=== PATIENT | female | born 1990 | race Caucasian/White ===

== ENCOUNTER 2018-07-23 00:31 | Emergency (ER) | payer OTHER ==
[2018-07-23 01:02] LABS: Bilirubin Negative (Negative); Blood, Urine Large (Negative); Glucose, Urine (Dipstick) Negative (Negative); Leukocyte Negative (Negative); Nitrite Negative (Negative); Protein, Urine (Dipstick) Trace mg/dL (Neg-Trace); Urobilinogen 0.2 mg/dL (0.2-1.0)
[2018-07-23 01:03] LABS: #Basophils 0.1 thou/uL (0.0-0.2); #Eosinphils 0.1 thou/uL (0.0-0.7); #Lymphocytes 2.8 thou/uL (1.20-3.40); #Monocytes 0.6 thou/uL (0.11-0.59); #Neutrophils 6.6 thou/uL (1.40-6.50); %Basophils 0.7 % (0.0-1.0); %Eosinophils 1.3 % (0.0-10.0); %Lymphocytes 27.8 % (21.0-51.0); %Monocytes 5.8 % (0.0-10.0); %Neutrophils 64.4 % (42.0-75.0); Hemoglobin 13.4 g/dL (12.0-16.0); Mean Corpuscular Hemoglobin 30.4 pg (27.0-31.0); Mean Corpuscular Volume 92.1 fL (78.0-98.0); Mean Platelet Volume 7.2 fL (7.4-10.4); Platelet Count 322 thou/uL (130-400); RBC Distribution Width 10.7 % (11.5-14.5); Red Blood Cell (RBC) Count 4.41 mill/uL (4.20-5.40); White Blood Cell (WBC) Count 10.2 thou/uL (4.8-10.8)
[2018-07-23 01:06] LABS: Clarity Clear (Clear); Specific Gravity, Urine 1.005 (1.005-1.030)
[2018-07-23 01:10] LABS: Bacteria/HPF None Seen HPF (None Seen); Hyaline Casts/LPF NONE SEEN LPF (0-3 Hyaline); Squamous Epithelial None Seen HPF (0-3); WBC/HPF 0-3 HPF (0-3)
[2018-07-23 01:41] LABS: ALT (SGPT) 16 U/L (8-55); AST (SGOT) 18 U/L (5-34); Albumin 4.2 g/dL (3.5-5.0); Alkaline Phosphatase 76 U/L (40-150); Anion Gap 12 mmol/L (10-20); BUN (Urea Nitrogen) 17 mg/dL (7.0-18.7); Bilirubin, Total 0.6 mg/dL (0.2-1.2); Calc. Creatinine Clearance 0 mL/min (70-130); Calcium 9.3 mg/dL (7.8-10.44); Carbon Dioxide 29 mmol/L (22-29); Chloride 103 mmol/L (98-107); Estimated GFR-MDRD 63; Globulin 3.5 g/dL (2.4-3.5); Glucose 96 mg/dL (70-105); Potassium 3.5 mmol/L (3.5-5.1); Protein, Total 7.7 g/dL (6.0-8.3); Sodium 140 mmol/L (136-145)
--- NOTE | 2018-07-23 08:15 | ULT ---
PRELIMINARY REPORT/[facility]/EMERGENTY AFTER-HOURS PROCEDURE US , Limited and US , Transvaginal EXAM DATE/TIME: 07/23/2018 2:38 AM CLINICAL HISTORY: 27 years old, female; Pain and signs and symptoms; Lmp or gestational age (in weeks): 05/09/18; Antepar saray complications; Hemorrhage; complicated by abdominal or pelvic pain; Other: Pelvic cramp ing pain; ; Patient HX: Hcg 15909. Spotting x 5 days, bleeding with clots tonight with pelvic cramping pain TECHNIQUE: Real-time ultrasound of the maternal uterus with image documentation. Transvaginal imaging w as used for better evaluation of the fetus and adnexa. Exam focused on the clinical indication. COMPARISON: No relevant prior studies available. FINDINGS: GESTATION: Gestation: No visible intrauterine gestation. MATERNAL: Uterus: Endometrial stripe is normal in thickness at 1.2 cm but is heterogeneous with mild internal D oppler signal. Cervix: The cervical canal is distended to 1.7 cm in AP dimension with heterogeneous material includi ng a 7 mm oval hypoechoic area. No associated internal Doppler signal. Right adnexa: Right ovary is normal normal Doppler signal. Left adnexa: Left ovary is normal with normal Doppler signal. IMPRESSION: 1. No visible intrauterine gestation. Heterogeneous normal thickness endometrial stripe with internal Doppler signal is suspicious for retained products of conception. Submucosal fibroid or endometrial polyp not excluded. 2. Cervical canal distended to 1.7 cm with a vascular heterogeneous material, likely represents blood products. Thank you for allowing us to participate in the care of your patient. Dictated and Authenticated by: Shamir Hutson MD 07/23/2018 3:39 AM Central Time ([place] & [place]) FINAL REPORT TRANSABDOMINAL AND TRANSVAGINAL PELVIC ULTRASOUND WITH ALEJANDRE SCALE AND COLOR FLOW AND SPECTRAL DOPPLER IMAGING: I agree with the preliminary report given by Dr. Shamir Hutson of [place]. POS: [facility]
== END 2018-07-23 04:17 | disposition home or self-care (01) ==
LOC: ERS 00:31
DX: O03.4 Incomplete spontaneous abortion without complication (principal)
CPT/HCPCS: 36415; 76856; 80053; 81003; 81015; 84702; 85025; 86900; 86901

== ENCOUNTER 2020-05-04 04:53 | Inpatient (IN) | payer OTHER ==
[2020-05-04 05:24] VITALS: BMI 31.9
[2020-05-04 06:03] LABS: Amnisure Test RUPTURE DETECTED (No Rupture)
[2020-05-04 06:05] LABS: Amnisure Internal Control QC ACCEPTABLE (ACCEPTABLE)
[2020-05-04] MEDS ORDERED: NS / Oxytocin 40 units/1000ml 1,000 ML IV PRN (06:10)
[2020-05-04] MEDS ORDERED: Lidocaine 1% (PF) 30 ML VIAL SC PRN (06:10)
[2020-05-04] MEDS ORDERED: Butorphanol Tartrate 1 MG/ML VIAL SLOW IVP PRN (06:10)
[2020-05-04] MEDS ORDERED: HYDROcodone/Acetaminophen 5/325 mg Tablet PO PRN (06:10)
[2020-05-04] MEDS ORDERED: hydrALAZINE 20 MG/ML VIAL SLOW IVP PRN ×2 (06:10→21:45)
[2020-05-04] MEDS ORDERED: Ibuprofen 800 MG TAB PO PRN (06:10)
[2020-05-04] MEDS ORDERED: Ondansetron PF 4 MG/2 ML Vial IVP PRN ×2 (06:10→09:29)
[2020-05-04] MEDS ORDERED: Promethazine HCl 25 MG/ML VIAL IM PRN ×2 (06:10→09:29)
[2020-05-04] MEDS: Lactated Ringer's 1,000 ML IV SCH ×2 (06:52→23:36)
[2020-05-04 06:58] LABS: Hemoglobin 12.6 g/dL (12.0-16.0); Mean Corpuscular HGB CONC 34.2 g/dL (32.0-36.0); Mean Corpuscular Hemoglobin 31.8 pg (27.0-31.0); Mean Corpuscular Volume 93.1 fL (78.0-98.0); Mean Platelet Volume 7.7 fL (7.4-10.4); Platelet Count 293 thou/uL (130-400); RBC Distribution Width 11.8 % (11.5-14.5); Red Blood Cell (RBC) Count 3.97 mill/uL (4.20-5.40); White Blood Cell (WBC) Count 12.1 thou/uL (4.8-10.8)
[2020-05-04] MEDS ORDERED: Fentanyl 4 mcg/Bup 0.1% Cadd 100 ML ONE (07:31)
[2020-05-04 07:32] LABS: HBSAg Index 0.22 S/CO (0-0.99); Hep B Surf Ag Non-Reactive S/CO (NonReactive)
[2020-05-04] MEDS ORDERED: Lactated Ringer's 500 ML IV PRN (09:29)
[2020-05-04] MEDS ORDERED: diphenhydrAMINE 50 MG/ML VIAL IVP PRN (09:29)
[2020-05-04] MEDS ORDERED: Acetaminophen 325 MG TAB PO PRN (09:29)
[2020-05-04] MEDS ORDERED: EPHEDRINE 25 MG/5 ML SYRINGE SLOW IVP PRN (09:29)
[2020-05-04] MEDS ORDERED: Naloxone HCl 0.4 mg/ml Vial IVP PRN ×2 (09:29)
[2020-05-04] MEDS ORDERED: Communication Order-Pharmacy FS SCH (09:30)
[2020-05-04] MEDS ORDERED: Fentanyl 4 mcg/Bupivacaine 0.1% Cassette 100 ML EPIDURAL SCH (09:30)
[2020-05-04 09:31] LABS: Syphilis Antibody Nonreactive (Nonreactive); Syphilis Antibody Index 0.04 S/CO (<1.00 Non-Reactive)
[2020-05-04] MEDS ORDERED: Bupivacaine/Epinephrine 0.25% 30 ML VIAL ONE (11:25)
[2020-05-04 12:32] LABS: SARS-CoV-2 MS2 Positive; SARS-CoV-2 N Gene Negative; SARS-CoV-2 S Gene Negative; SARS-CoV-2 by NAA Not Detected (NotDetected); SARS-CoV-2 orf1ab Negative
[2020-05-04] MEDS ORDERED: NS w/ Oxytocin 10 units 500 ML IVPB SCH (12:45)
[2020-05-04] MEDS ORDERED: NS / Oxytocin 40 units/1000ml 1,000 ML ONE (17:21)
[2020-05-04] MEDS ORDERED: Lidocaine 1% (PF) 30 ML VIAL ONE (17:21)
--- NOTE | 2020-05-04 21:44 | PDOC.OPDEL ---
OB Operative/Delivery Note Delivery Dr/Surgeon: Jose M Pre-Delivery Diagnosis: active labor Procedure/Post Delivery Dx: spontaneous vaginal delivery Weeks gestation: 37 Anesthesia: epidural - Findings A Sex: male - 1 min: 8 - 5 min: 9 - Additional Findings/Plan Placenta delivered: spontaneous Repaired Obstetrical Laceration: 2nd degree Estimated blood loss: 60ml qbl Post delivery plan: routine recovery
[2020-05-04] MEDS ORDERED: Benzocaine-Menthol 82.5 ML CAN TOP PRN (21:45)
[2020-05-04] MEDS ORDERED: Misoprostol 200 MCG TAB VAG PRN (21:45)
[2020-05-04] MEDS ORDERED: Bisacodyl 10 MG SUPP PR PRN (21:45)
[2020-05-04] MEDS ORDERED: traMADol HCl 50 MG TAB PO PRN (21:45)
[2020-05-04] MEDS ORDERED: Preparation H Ointment 28 GM TUBE PR PRN (21:45)
[2020-05-04] MEDS ORDERED: Lanolin Ointment 7 GM TUBE TOP PRN (21:45)
[2020-05-04] MEDS ORDERED: Milk Of Magnesia 30 ML UDCUP PO PRN (21:45)
[2020-05-04] MEDS ORDERED: NS / Oxytocin 40 units/1000ml 1,000 ML IV SCH (22:00)
[2020-05-05] MEDS: Ibuprofen 800 MG TAB PO SCH ×4 (00:01→21:16)
[2020-05-05] MEDS: Ferrous Sulfate 325 MG TAB PO SCH ×2 (07:25→15:41)
--- NOTE | 2020-05-05 07:49 | PDOC.PP ---
Post Progress Note Post Day #: 0-1 PO intake tolerated: yes Flatus: yes Ambulation: yes Vital Signs (12 hours) Pulse Ox 05/05/20 01:33 99 Weight Weight 198 lb - Physical Examination Abdominal: no distention, appropriately TTP Extremities: negative homans (B) Result Diagrams: 05/04/20 06:39 Additional Labs: Post Labs Blood Type B POSITIVE 05/04/20 06:39 Hep Bs Antigen Non-Reactive S/CO (NonReactive) 05/04/20 06:39 - Assessment/Plan Post op day 0-1. Doing well. routine post care. Anticiapate discharge in AM.
[2020-05-05] MEDS ORDERED: Adacel (T-DAP) 0.5 ML SYRINGE IM ONE (09:00)
[2020-05-05] MEDS: Prenatal Vitamin 1 TAB PO SCH (09:32)
[2020-05-05] MEDS: Docusate Calcium (SURFAK) 240 MG CAP PO SCH ×2 (09:32→21:16)
[2020-05-06] MEDS: Ibuprofen 800 MG TAB PO SCH (05:03)
[2020-05-06 08:10] VITALS: BP 109/67; TEMP 97.6
--- NOTE | 2020-05-06 08:14 | PDOC.PP ---
Post Progress Note Post Day #: 2 PO intake tolerated: yes Flatus: yes Ambulation: yes Vital Signs (12 hours) Temp Pulse Resp BP Pulse Ox 05/06/20 08:09 97.6 F 77 20 109/67 97 05/05/20 21:18 97.8 F 72 16 111/68 97 Weight Weight 198 lb - Physical Examination Abdominal: no distention, appropriately TTP Extremities: negative homans (B) Result Diagrams: 05/04/20 06:39 Additional Labs: Post Labs Blood Type B POSITIVE 05/04/20 06:39 Hep Bs Antigen Non-Reactive S/CO (NonReactive) 05/04/20 06:39 - Assessment/Plan Post day 2-doing well. discharge home. F/u 6 weeks.
[2020-05-06] MEDS: Ferrous Sulfate 325 MG TAB PO SCH (08:28)
[2020-05-06] MEDS: Docusate Calcium (SURFAK) 240 MG CAP PO SCH (09:41)
[2020-05-06] MEDS: Prenatal Vitamin 1 TAB PO SCH (09:41)
== END 2020-05-06 13:15 | disposition home or self-care (01) | DRG 807 ==
LOC: L&D/OP 04:53 → L&D 20:12 → 3SW 23:55
PROVIDERS: ADMIT Obstetrics & Gynecology; ATTEND Obstetrics & Gynecology
PROC: 10E0XZZ Delivery of Products of Conception, External Approach (ICD-10-PCS; principal; 2020-05-04)
PROC: 0KQM0ZZ Repair Perineum Muscle, Open Approach (ICD-10-PCS; 2020-05-04)
PROC: 6A550ZT Pheresis of Cord Blood Stem Cells, Single (ICD-10-PCS; 2020-05-04)
DX: O76 Abnormality in fetal heart rate and rhythm complicating labor and delivery (principal); Z37.0 Single live birth; Z3A.37 37 weeks gestation of pregnancy; O70.1 Second degree perineal laceration during delivery
CPT/HCPCS: 36415; 51702; 84112; 85027; 86780; 86850; 86900; 86901; 87340; 87635; 99285; J2001; J2590; U0003